=== PATIENT | female | born 1965 | race Hispanic/Latino ===

== ENCOUNTER 2021-01-13 16:02 | Emergency (ER) | payer OTHER ==
[2021-01-13] MEDS ORDERED: ASPIRIN 325 MG TABLET ONE (16:29)
[2021-01-13 16:47] LABS: BASOPHILS % (AUTO) 0.7 % (0.0-5.0); EOSINOPHILS % (AUTO) 1.4 % (0.0-8.0); HEMATOCRIT 43.9 % (36-48); LYMPHOCYTES % (AUTO) 27.8 % (21.0-51.0); MEAN CORPUSCULAR HEMOGLOBIN 29.2 pg (27.0-33.0); MEAN CORPUSCULAR HGB CONC 31.2 g/dL (32.0-36.0); MEAN CORPUSCULAR VOLUME 93.6 fL (79-99); MONOCYTES % (AUTO) 6.1 % (3.0-13.0); NEUTROPHILS % (AUTO) 63.6 % (40.0-77.0); PLATELET COUNT (AUTO) 228 K/uL (130-400); RED BLOOD CELL COUNT(AUTO) 4.69 MIL/uL (4.00-5.50); RED CELL DISTRIBUTION WIDTH 14.6 % (11.0-15.5); WHITE BLOOD COUNT (AUTO) 9.1 K/uL (4.8-10.8)
[2021-01-13 16:57] LABS: CREATININE 0.9 mg/dL (0.5-1.5); POTASSIUM 3.7 mmol/L (3.5-5.1)
[2021-01-13 17:02] LABS: ALBUMIN 3.8 g/dL (3.5-5.0); BILIRUBIN,TOTAL 0.3 mg/dL (0.2-1.0); TOTAL PROTEIN, SERUM 7.8 g/dL (6.0-8.3)
[2021-01-13 17:08] LABS: PROTHROMBIN TIME 10.9 SEC (9.6-11.6)
[2021-01-13 17:10] LABS: PARTIAL THROMBOPLASTIN TIME 29.1 SEC (26.3-35.5)
== END 2021-01-13 20:02 | disposition home or self-care (01) ==
LOC: EDH 16:02
DX: R07.89 Other chest pain (principal); R94.31 Abnormal electrocardiogram [ECG] [EKG]; E03.9 Hypothyroidism, unspecified; G43.909 Migraine, unspecified, not intractable, without status migrainosus; Z98.890 Other specified postprocedural states
CPT/HCPCS: 36415; 71045; 80053; 82550; 84484; 85025; 85610; 85730; 93005

== ENCOUNTER 2024-07-08 08:09 | Emergency (ER) | payer BC, OTHER ==
[~2024-07-08] VITALS: Ht 152.4 cm; Wt 91.6 kg
--- NOTE | 2024-07-08 08:57 | HMCIMG ---
EXAM: LUMBAR SPINE 2-3VWS REASON: fall. COMPARISON: None. TECHNIQUE: 3 views of the lumbar spine were obtained. FINDINGS: There is normal appearance of the lumbar vertebral bodies. Disc interspace heights are preserved. Alignment is normal. There are no visible fractures. Soft tissues appear unremarkable. IMPRESSION: 1. Normal lumbar spine.
--- NOTE | 2024-07-08 09:09 | ERN ---
General Chief Complaint: Mechanical Fall Stated Complaint: RT MID BACK PAIN, FALL Time Seen by MD: 08:12 Source: patient History of Present Illness Initial Comments Patient is a 58-year-old female coming in to be evaluated for left flank pain. Patient states she was showering and slipped twisting her back but she states he did not all hit it. She landed on her left knee she was he does not have not pain in the left knee is able to move without limitations. Allergies: Coded Allergies: No Known Allergies (Unverified Allergy, Unknown, 01/13/21) Past Medical History Past Medical History: Hypothyroid Medical History Other: VERTIGO Past Surgical History: Hysterectomy, Cholecystectomy, ROS Dictation CONSTITUTIONAL: No chills, no fever, no weakness, no diaphoresis, no malaise. HEAD/FACE: No signs of trauma. EENT: No eye pain, no blurred vision, no tearing, no double vision, no ear pain, no ear discharge, no nose pain, no nasal congestion, no throat pain, no throat swelling, no mouth pain. RESPIRATORY: No cough, no orthopnea, no SOB, no stridor, no wheezing. CARDIOVASCULAR: No chest pain, no edema, no palpitations, no syncope. GASTROINTESTINAL/ABDOMINAL: No abdominal pain, no constipation, no diarrhea, no nausea, no vomiting. GENITOURINARY: No abnormal discharge, no dysuria, no frequent urination, no hematuria. No complaints of pain in the genitals. MUSCULOSKELETAL: No back pain, no gout, no joint pain, no joint swelling, no muscle pain, no muscle stiffness, no neck pain. INTEGUMENTARY: No change in color, no change in hair/nails, no dryness, no lesion, no lumps, no rash. NEUROLOGICAL/PSYCH: No anxiety, not depressed, no emotional problem, no headache, no numbness, no pre-existing deficit, no history of seizures, no tremors, no weakness. HEMATOLOGIC/LYMPHATIC: Not anemic, no history of blood clots, no apparent bleeding, no bruising, glands not swollen. All Systems Negative, Except as Noted. Physical Exam Physical Exam Dictation VITAL SIGNS: Reviewed. GENERAL APPEARANCE: Alert, oriented x3, no acute distress, obese. HEAD AND FACE: Non-traumatic. EYES: PERRL, pink conjunctivas, eyelid no trauma, anterior chamber clear. EARS: Pinnas intact and no signs of trauma or erythema. Ear canals clear and no discharge. TMs no erythema. NOSE: No discharge, no bleeding. OROPHARYNX: Mouth normal, teeth no caries, tongue pink. Pharynx clear, no erythema. Tonsils no exudates, no abscesses noted. Mucous membrane moist. NECK: Supple, non-tender, no thyromegaly, no masses, no JVD, no bruits. BREAST: Deferred. CHEST: No tenderness, no crepitus, no paradoxical movement, no retractions. LUNGS: Clear, well-ventilated, symmetric, no rales, no wheezing, no rhonchi, no stridor, good breath sounds bilaterally. HEART: Regular rate, regular rhythm, no murmur, no gallops. VASCULAR: No peripheral edema. ABDOMEN: Soft, positive bowel sounds, nondistended, no guarding, nontender, no rebound, no masses no hepatomegaly, no splenomegaly, no Miller's sign, no hernias. RECTAL: Deferred. GENITAL: Deferred. NEUROLOGICAL: Normal speech, gross motor function intact, gross sensory function intact. MUSCULOSKELETAL: Neck nontender, full range of motion, back tenderness EXTREMITIES: Nontender, full range of motion. SKIN: Color pink, dry, no turgor, no rash, no lacerations, no abrasions, no contusions. LYMPHATICS: Deferred. Results Laboratory and Microbiology Labs Reviewed?: Yes EKG/XRAY/US/CT/MRI X-RAY Comment [place] [id number] [address] IMAGING REPORT Signed PATIENT: HAIDER HIDALGO MR#: [id number] : 1965 SEX: F AGE: 58 LOCATION: [facility] ORDER 0 STATUS: [facility] REPORT#: [id number] SERVICE 9 REASON: fall ORDERING PHYSICIAN: ANDREW CANTRELL MD PROCEDURE: LUMB 2 3VW - LUMBAR SPINE 2-3VWS EXAM: LUMBAR SPINE 2-3VWS REASON: fall. COMPARISON: None. TECHNIQUE: 3 views of the lumbar spine were obtained. FINDINGS: There is normal appearance of the lumbar vertebral bodies. Disc interspace heights are preserved. Alignment is normal. There are no visible fractures. Soft tissues appear unremarkable. IMPRESSION: 1. Normal lumbar spine. DICTATED BY: CONSTANTINE MCKEON MD DATE: 07/08/24853 ELECTRONICALLY SIGNED BY: CONSTANTINE MCKEON MD DATE: 07/08/24856 [facility] MDM: Differential diagnosis: Lumbar strain, muscle spasms Patient is a 58-year-old female coming in to be evaluated for lumbar strain. Patient states that she was showering almost fell down she landed on her left like but states she has a planer left leg her pain is more on her back as she twisted her back states he has spasms in her back. Patient will be discharged with a diagnosis of lumbar strain. ED Course Orders Procedure Category Date Status Time Lumbar Spine 2-3vws RAD 07/08/24 Resulted 08:20 Orphenadrine Citrate PHA 07/08/24 Complete (Norflex) 08:30 Ketorolac PHA 07/08/24 Complete Tromethamine 30mg/Ml 08:30 Current Medications Medications (Trade) Dose Ordered Sig/Destiny Route PRN Reason Start Time Stop Time Status Last Admin Dose Admin Ketorolac Tromethamine (toRADol) 30 mg ONCE ONCE IM 07/08/24 08:30 07/08/24 08:31 DC 07/08/24 09:15 Orphenadrine Citrate (Norflex) 60 mg ONCE ONCE IM 07/08/24 08:30 07/08/24 08:31 DC 07/08/24 09:15 Vital Signs Date Time Temp Pulse Resp B/P (MAP) Pulse Ox O2 Delivery O2 Flow Rate FiO2 07/08/24 09:15 97.9 78 16 132/64 98 Room Air* 0 21 07/08/24 08:14 97.9 73 16 130/54 99 Room Air* 0 21 07/08/24 08:10 97.9 76 16 130/54 98 Room Air 0 DX & DISP Disposition: Discharge Departure Impression: Primary Impression: Lumbar strain Condition: Stable Scripts Naproxen (Naproxen) 375 Mg Tablet. 375 MG PO BID for 7 Days, #14 TAB Prov: ANDREW CANTRELL MD 07/08/24 Additional Instructions: FOLLOW-UP WITH PRIMARY CARE PROVIDER IN 1 TO 2 DAYS. TAKE MEDICATIONS DIRECTED HERE IN THE EMERGENCY ROOM. OKAY TO CONTINUE HOME MEDICATIONS UNLESS OTHERWISE DISCUSSED DURING YOUR VISIT IN THE EMERGENCY ROOM TODAY. RETURN TO YOUR NEAREST EMERGENCY ROOM IF SYMPTOMS WORSEN OR IF THERE IS NO IMPROVEMENT. CALL 911 IF YOU NEED IMMEDIATE ASSISTANCE. TAKE TYLENOL [id number] NEEDED AND IF NO CONTRAINDICATIONS ARE PRESENT. INCREASE ORAL HYDRATION. A WOUND CULTURE OR URINE CULTURE WAS ORDERED HERE IN THE EMERGENCY ROOM DEPARTMENT PLEASE FOLLOW-UP WITH PRIMARY CARE PROVIDER AND ADVISE THEM TO GET REPEAT PORTS FROM OUR FACILITY. IF YOU HAD ANY JUANI WRAP/SPLINTS THAT WERE APPLIED HERE, PLEASE DO NOT REMOVE THEM UNTIL YOU SEE YOUR PRIMARY CARE OR SPECIALTY. Referrals: Referrals: SOPHIE PIRES MD (PCP) Time of Disposition: 09:43 ANDREW CANTRELL MD Jul 08, 2024 09:09
[2024-07-08 09:15] VITALS: BP 132/64; PULSE 78; RESP 16; TEMP 97.9; O2SAT 98
[2024-07-08] MEDS: ORPHENADRINE 60MG/2ML IM ONE (09:15)
[2024-07-08] MEDS: ketOROlac 30MG VIAL (30MG/ML) IM ONE (09:15)
[2024-07-08] MEDS ORDERED: NAPR-1505 PO (09:44)
== END 2024-07-08 10:14 | disposition home or self-care (01) ==
LOC: EDH 08:09
DX: S39.012A Strain of muscle, fascia and tendon of lower back, initial encounter (principal); E03.9 Hypothyroidism, unspecified; Z90.49 Acquired absence of other specified parts of digestive tract; Z90.710 Acquired absence of both cervix and uterus; X58.XXXA Exposure to other specified factors, initial encounter; Y93.89 Activity, other specified; Y92.89 Other specified places as the place of occurrence of the external cause; Y99.8 Other external cause status
CPT/HCPCS: 99284; 72100; 96372 ×2; J1885; J2360